=== PATIENT | male | born 1960 | race Two or more races ===

== ENCOUNTER 2018-08-05 11:43 | Inpatient (IN) | payer OTHER ==
[~2018-08-05] VITALS: Ht 175.3 cm; Wt 81.6 kg
--- NOTE | 2018-08-05 11:52 | NUR ---
PT BIBRA FROM HOME FOR CP X1HR; TOOK NITRO SEARCH ENGINE MARKETING MANAGER, PT [id number], PT ON MONITOR, VSS, NAD NOTED, PENDING ER PROVIDER KIESHA
[2018-08-05] MEDS ORDERED: ASPIRIN 325 MG TABLET ONE (11:59)
[2018-08-05] MEDS ORDERED: NITROGLYCERIN PACKET 1 GM PACKET ONE (11:59)
[2018-08-05 12:00] LABS: BASOPHILS # (AUTO) 0.1 /CMM (0.0-0.2); BASOPHILS % (AUTO) 0.7 % (0.0-2.0); EOSINOPHILS % (AUTO) 3.5 % (0.0-6.0); HEMATOCRIT 43 % (39-51); HEMOGLOBIN 14.6 g/dL (13.5-17.5); LYMPHOCYTES # (AUTO) 2.4 /CMM (0.8-4.8); LYMPHOCYTES % (AUTO) 29.5 % (20.0-44.0); MEAN CORPUSCULAR HGB CONC 34 g/dl (31.0-36.0); MEAN CORPUSCULAR VOLUME 90 fL (80-96); MONOCYTES # (AUTO) 0.7 /CMM (0.1-1.30); MONOCYTES % (AUTO) 8.8 % (2.0-12.0); NEUTROPHILS # (AUTO) 4.7 /CMM (1.8-8.9); NEUTROPHILS % (AUTO) 57.5 % (43.0-81.0); PLATELET COUNT (AUTO) 329 /CMM (150-450); WHITE BLOOD COUNT (AUTO) 8.2 K/uL (4.3-11.0)
[2018-08-05] MEDS ORDERED: ASPIRIN 325 MG TABLET PO ONE (12:00)
[2018-08-05] MEDS ORDERED: NITROGLYCERIN PACKET 1 GM PACKET TD ONE (12:00)
[2018-08-05 12:16] LABS: CARBON DIOXIDE 26 mmol/L (21-32); CHLORIDE 103 mmol/L (98-107); CREATININE 1.2 mg/dL (0.6-1.3); GLUCOSE 216 mg/dL (74-106); POTASSIUM 3.9 mmol/L (3.5-5.1); SODIUM SERUM 138 mmol/L (136-145); UREA NITROGEN, BLOOD 15 mg/dL (7-18)
[2018-08-05] MEDS ORDERED: [UNRECOGNIZED DRUG - REMARK] PO (12:17)
[2018-08-05] MEDS ORDERED: NITR0.4T48 SL (12:17)
[2018-08-05] MEDS ORDERED: UNK HTN PO (12:17)
[2018-08-05] MEDS ORDERED: [UNRECOGNIZED DRUG - REMARK] PO (12:17)
[2018-08-05 12:21] LABS: ALANINE AMINOTRANSFERASE 53 U/L (12-78); ALBUMIN 3.8 g/dL (3.4-5.0); ALKALINE PHOSPHATASE 48 U/L (46-116); ASPARTATE AMINOTRANSFERASE 27 U/L (15-37); BILIRUBIN,DIRECT 0.1 mg/dL (0.0-0.2); BILIRUBIN,TOTAL 0.3 mg/dL (0.2-1.0); TOTAL PROTEIN, SERUM 6.9 g/dL (6.4-8.2)
[2018-08-05] MEDS ORDERED: METF-440 PO (12:24)
[2018-08-05] MEDS ORDERED: ERGO500040 PO (12:24)
[2018-08-05] MEDS ORDERED: CETI10TA14 PO (12:24)
[2018-08-05] MEDS ORDERED: AMLO10TA7 PO (12:24)
[2018-08-05] MEDS ORDERED: IPRA12.9 INH (12:24)
[2018-08-05] MEDS ORDERED: ROSU20TA31 PO (12:24)
--- NOTE | 2018-08-05 12:44 | NUR ---
CLINICALLS SENT TO THE FRONT
--- NOTE | 2018-08-05 12:50 | NUR ---
CALLED FOR TELE BED
--- NOTE | 2018-08-05 13:39 | NUR ---
[facility] BED 111-2
--- NOTE | 2018-08-05 14:25 | NUR ---
REPORT GIVEN TO LUDA PEÑA FOR NICK
--- NOTE | 2018-08-05 14:26 | NUR ---
SUPPLY PERSONSTEEL FABRICATING SUPERVISOR NOTES RECEIVED PT FROM ER TO ROOM 111-2 VIA [employer].ALERT/ORIENTED X4,LITHUANIAN SPEAKING,KNOWS MACEDONIAN.ON ROOM AIR,SATURATING WELL.NO SOB AND ACUTE DISTRESS NOTED.CAN AMBULATE WITH MINIMAL SUPERVISION.NOTED WITH PAIN 1/10 ON CHEST-LEFT.IV LINE IS ON RIGHT AC G18,SITE IS CLEAN,DRY AND INTACT.NO INFILTRATION NOTED.FAMILY IS AT BEDSIDE.SKIN ASSESSMENT IS DONE AND PHOTO HAS TAKEN,NOTED WITH OLD SURGICAL SCAR ON STOMACH,SKIN TEAR ON B./L LOWER LEG.VITAL SIGNS CHECKED,WNL. SAFETY IS MAINTAINED AT ALL TIMES.BED IS IN LOW POSITION AND LOCKED.CALL LIGHT IS WITHIN REACH.WILL CONTINUE TO MONITOR THE PT CLOSELY.
[2018-08-05 16:00] VITALS: BP 121/64
[2018-08-05] MEDS ORDERED: ONDANSETRON HCL/PF 4 MG/2 ML VIAL IVP PRN (17:00)
[2018-08-05] MEDS ORDERED: cetrizine 10 MG TABLET PO PRN (17:00)
[2018-08-05] MEDS ORDERED: MORPHINE SULFATE INJ 2 MG/ML DISP.SYRIN IV PRN (17:00)
[2018-08-05] MEDS ORDERED: NITROGLYCERIN 0.4 MG/TAB BOTTLE SL PRN ×2 (17:00)
[2018-08-05] MEDS ORDERED: ERGOCALCIFEROL (VITAMIN D 2) 50,000 UNIT CAPSULE PO SCH (17:00)
[2018-08-05] MEDS ORDERED: IPRATROPIUM NEB FS 0.5 MG/2.5 ML AMPUL.NEB NEB PRN (18:00)
[2018-08-05] MEDS: METFORMIN 500 MG TABLET PO SCH (18:22)
[2018-08-05] MEDS: AMLODIPINE BESYLATE 10 MG TABLET PO SCH (18:22)
[2018-08-05] MEDS: METOPROLOL TARTRATE 25 MG TABLET PO SCH (18:23)
--- NOTE | 2018-08-05 19:40 | NUR ---
MIDDLEWARE CONSULTANT OPENING NOTES Received patient on bed, alert, oriented x 4. Family at bedside. Breathing even and unlabored. Not in any distress. Tolerating room air. No complaints as of this time. Requesting to smoke, smoking consent signed- in chart. IV access in RAC g18, intact and patent. Tele monitor in place, sinus rhythm 77. Safety measures in place; call bermudez within reach. Bed in low, locked position. Patient stable as endorsed by the morning RN. Will continue to monitor accordingly
[2018-08-05 21:05] VITALS: BP 122/74
[2018-08-06] VITALS (7 sets, daily range): BP systolic 113–122; BP diastolic 56–77
--- NOTE | 2018-08-06 06:30 | NUR ---
BRANDS EDITOR CLOSING NOTES Patient resting in bed, alert, oriented x 4. Breathing even and unlabored. Not in any distress. Tolerating room air. No complaints of chest pain through the night. IV access in RAC g18, intact and patent. Tele monitor in place, sinus rhythm 88 with BBB. All needs attended to. Safety measures in place; call bermudez within reach. Bed in low, locked position. Will endorse NICK to incoming RN
--- NOTE | 2018-08-06 07:10 | NUR ---
EDITOR HOUSE ORGAN OPENING NOTES RECEIVED PT RESTING IN BED. ALERT/ORIENTED X4. ON ROOM AIR, SATURATING WELL. NO SOB AND ACUTE DISTRESS NOTED. CAN AMBULATE WITH MINIMAL SUPERVISION. NOTED WITH PAIN 0/10 ON CHEST, BACK, AND LEFT ARM. IV LINE IS ON RIGHT AC G18, SITE IS CLEAN, DRY AND INTACT. NO INFILTRATION NOTED. BED IS IN LOW POSITION AND LOCKED. CALL LIGHT IS WITHIN REACH. WILL CONTINUE TO MONITOR THE PT CLOSELY THROUGHOUT SHIFT.
[2018-08-06 07:37] LABS: BASOPHILS % (AUTO) 0.4 % (0.0-2.0); EOSINOPHILS % (AUTO) 2.5 % (0.0-6.0); HEMATOCRIT 42 % (39-51); HEMOGLOBIN 13.9 g/dL (13.5-17.5); LYMPHOCYTES # (AUTO) 1.4 /CMM (0.8-4.8); LYMPHOCYTES % (AUTO) 12.7 % (20.0-44.0); MEAN CORPUSCULAR HGB CONC 33 g/dl (31.0-36.0); MEAN CORPUSCULAR VOLUME 89 fL (80-96); MONOCYTES # (AUTO) 0.8 /CMM (0.1-1.30); NEUTROPHILS # (AUTO) 8.6 /CMM (1.8-8.9); NEUTROPHILS % (AUTO) 77.4 % (43.0-81.0); PLATELET COUNT (AUTO) 278 /CMM (150-450); RED BLOOD CELL COUNT(AUTO) 4.71 MIL/uL (4.5-6.0); WHITE BLOOD COUNT (AUTO) 11.2 K/uL (4.3-11.0)
[2018-08-06 07:59] LABS: CALCIUM, SERUM 8.8 mg/dL (8.5-10.1); CREATININE 1.2 mg/dL (0.6-1.3); MAGNESIUM 1.7 mg/dL (1.8-2.4); PHOSPHORUS 3.2 mg/dL (2.5-4.9); POTASSIUM 4.3 mmol/L (3.5-5.1)
[2018-08-06] MEDS: AMLODIPINE BESYLATE 10 MG TABLET PO SCH (08:56)
[2018-08-06] MEDS: ASPIRIN 81 MG TAB.CHEW PO SCH (08:56)
[2018-08-06] MEDS: METOPROLOL TARTRATE 25 MG TABLET PO SCH ×2 (08:57→16:46)
[2018-08-06] MEDS: METFORMIN 500 MG TABLET PO SCH ×2 (08:57→16:36)
[2018-08-06] MEDS: ATORVASTATIN 40 MG TABLET PO SCH (08:57)
[2018-08-06] MEDS ORDERED: Magnesium 1GM/D5W 100ML PREMIX 100 ML IV SCH (09:30)
[2018-08-06] MEDS: LOSARTAN POTASSIUM 50 MG TABLET PO SCH (10:34)
[2018-08-06] MEDS: Magnesium 1GM/D5W 100ML PREMIX 100 ML IV SCH ×2 (10:37→11:26)
[2018-08-06] MEDS: ACETAMINOPHEN 325 MG TABLET PO PRN (16:34)
--- NOTE | 2018-08-06 19:10 | NUR ---
NURSE MANAGER CLOSING NOTES RECEIVED PT RESTING IN BED. ALERT/ORIENTED X4. ON ROOM AIR, SATURATING WELL. NO SOB AND ACUTE DISTRESS NOTED. CAN AMBULATE WITH MINIMAL SUPERVISION. NOTED WITH PAIN 0/10 ON CHEST, BACK, AND LEFT ARM. IV LINE IS ON RIGHT AC G18, SITE IS CLEAN, DRY AND INTACT. NO INFILTRATION NOTED. BED IS IN LOW POSITION AND LOCKED. CALL LIGHT IS WITHIN REACH. ALL NEEDS MET. ENDORSED TO FLIGHT INSPECTOR NURSE FOR NICK.
--- NOTE | 2018-08-06 20:00 | NUR ---
RN INITIAL NOTES RECEIVED PT RESTING IN BED.FAMILY AT BED SIDE. ALERT/ORIENTED X4. ON ROOM AIR, SATURATING WELL. NO SOB AND ACUTE DISTRESS NOTED. IV LINE IS ON RIGHT AC G18, SITE IS CLEAN, DRY AND INTACT. NO INFILTRATION NOTED. BED IS IN LOW POSITION AND LOCKED. CALL LIGHT IS WITHIN REACH. WILL CONTINUE TO MONITOR.
[2018-08-07 01:00] VITALS: BP 121/61
[2018-08-07 05:00] VITALS: BP 125/69
--- NOTE | 2018-08-07 06:34 | NUR ---
CUSTOMER ORDER CLERK CLOSING NOTES PT RESTING IN BED. ALERT/ORIENTED X4. ON ROOM AIR, SATURATING WELL. NO SOB AND ACUTE DISTRESS NOTED.NO CP REPORTED. IV LINE IS ON RIGHT AC G18, SITE IS CLEAN, DRY AND INTACT. BED IN LOW POSITION AND LOCKED. CALL LIGHT IS WITHIN REACH. ALL NEEDS MET. WILL ENDORSE TO AM SHIFT NURSE FOR NICK.
[2018-08-07 07:06] LABS: CALCIUM, SERUM 8.5 mg/dL (8.5-10.1); CREATININE 1.3 mg/dL (0.6-1.3); MAGNESIUM 1.8 mg/dL (1.8-2.4); POTASSIUM 4.3 mmol/L (3.5-5.1)
--- NOTE | 2018-08-07 07:20 | NUR ---
OIL DERRICK OPERATOR OPENING NOTES RECEIVED PT RESTING IN BED. ALERT/ORIENTED X4. ON ROOM AIR, SATURATING WELL. NO SOB AND ACUTE DISTRESS NOTED. CAN AMBULATE WITH MINIMAL SUPERVISION. NO CHEST PAIN NOTED. IV LINE IS ON RIGHT AC G18, SITE IS CLEAN, DRY AND INTACT. NO INFILTRATION NOTED. BED IS IN LOW POSITION AND LOCKED. CALL LIGHT IS WITHIN REACH.SRX2. WILL CONTINUE TO MONITOR .
[2018-08-07 08:00] VITALS: BP 138/75
[2018-08-07] MEDS: ATORVASTATIN 40 MG TABLET PO SCH (08:19)
[2018-08-07] MEDS: AMLODIPINE BESYLATE 10 MG TABLET PO SCH (08:19)
[2018-08-07] MEDS: ASPIRIN 81 MG TAB.CHEW PO SCH (08:20)
[2018-08-07] MEDS: METOPROLOL TARTRATE 25 MG TABLET PO SCH ×2 (08:20→16:37)
[2018-08-07] MEDS: LOSARTAN POTASSIUM 50 MG TABLET PO SCH (08:20)
[2018-08-07] MEDS: METFORMIN 500 MG TABLET PO SCH ×2 (08:20→16:35)
[2018-08-07 12:00] VITALS: BP 124/68
[2018-08-07] MEDS: BLOOD SUGAR DIAGNOSTIC 1 EACH STRIP IN SCH ×3 (12:00→22:25)
[2018-08-07] MEDS ORDERED: DEXTROSE 50%-WATER 50 ML DISP.SYRIN IV PRN (12:00)
--- NOTE | 2018-08-07 13:00 | NUR ---
OUTBOARD MOTOR TESTER NOTE NOT GIVEN INSULIN BECAUSE PATENT NOT EATING LUNCH.
[2018-08-07] MEDS: ACETAMINOPHEN 325 MG TABLET PO PRN (13:34)
[2018-08-07] MEDS: IV 1/2NS 1000 ML 1,000 ML IV PRN (13:37)
--- NOTE | 2018-08-07 14:30 | NUR ---
ELEMENT SETTER NOTE SEEN BY ,UPDATED ABOUT PATIENT CONDITION AND GOT ORDERS.
[2018-08-07] MEDS ORDERED: METOPROLOL TARTRATE INJ 5 MG/5 ML AMPUL ONE ×2 (14:54→15:00)
[2018-08-07] MEDS ORDERED: METOPROLOL TARTRATE INJ 5 MG/5 ML AMPUL IVP ONE (15:30)
[2018-08-07] MEDS ORDERED: IV NS 0.9% 500 ML IV ONE (15:30)
--- NOTE | 2018-08-07 15:30 | NUR ---
FRIT MAKER NOTE PATIENT PICKED UP FOR CTA.
[2018-08-07 16:00] VITALS: BP_SYST 116; BP_SYST 127; BP_DIAS 62; BP_DIAS 72
--- NOTE | 2018-08-07 19:00 | NUR ---
EQUIPMENT MANAGER NOTE GLUCOPHAGE HOLD BECAUSE PATIENT BLEVINS POOR PO INTAKE.REFUSED FLU VACCINE BECAUSE PATIENT STATED FEELS LIKE HE IS GETTING SICK AND COLD.HE WILL F/U WITH HIS PCP.GOT CALL FROM TO HOLD DISCHARGE ,NPO POST MIDNIGHT.STRESS TEST TOMORROW.ENDORSED TO PM NURSE FOR NICK.
--- NOTE | 2018-08-07 19:15 | NUR ---
RN NOTES RECEIVED PATIENT AWAKE, HOB ELEVATED, ON ROOM AIR AND TOLERATED WELL. PATIENT IS ALERT AND ORIENTED X4, DENIES PAIN NAUSEA AND VOMITING AT THIS TIME. IV ACCESS ON LEFT AC PATENT AND INTACT WITH ONGOING IVF INFUSING WELL. PLAN OF CARE DISCUSSED WITH THE PATIENT AND FAMILY AT BEDSIDE AND VERBALIZED UNDERSTANDING. KEPT PATIENT COMFORTABLE AND ATTENDED WITH CALL LIGHT WITHIN REACH. WILL CONTINUE TO MONITOR PATIENT.
[2018-08-07 20:00] VITALS: BP 138/84
[2018-08-07] MEDS: INSULIN REGULAR, HUMAN 100 UNIT/ML 3 ML VIAL SQ PRN (22:17)
[2018-08-08] VITALS: BP 143/81
[2018-08-08] MEDS: IV 1/2NS 1000 ML 1,000 ML IV PRN (03:50)
[2018-08-08 04:00] VITALS: BP_SYST 126; BP_SYST 143; BP_DIAS 66; BP_DIAS 81
--- NOTE | 2018-08-08 05:55 | NUR ---
RN Notes Patient slept well overnight, vital signs stable, afebrile. Denies any pain and discomfort, on room air and tolerated well. Telemonitor reads Sinus Rhythm with heart rate at 80. Kept patient on NPO for stress test scheduled today. Ambulatory with steady gait. Voiding well. All needs attended. Will endorsed to morning RN for continuity of care.
[2018-08-08] MEDS: BLOOD SUGAR DIAGNOSTIC 1 EACH STRIP IN SCH ×3 (06:24→17:39)
--- NOTE | 2018-08-08 07:12 | NUR ---
RELAY SHOP TESTER OPENING NOTES RECEIVED PT RESTING IN BED. ALERT/ORIENTED X4. ON ROOM AIR, SATURATING WELL. NO SOB AND ACUTE DISTRESS NOTED. CAN AMBULATE WITH MINIMAL SUPERVISION. NO CHEST PAIN NOTED. IV LINE IS ON L AC G20, SITE IS CLEAN, DRY AND INTACT. NO INFILTRATION NOTED WITH 1/2 NS @80CC/HR. ON TELE MONITOR WITH HR OF 77.BED IS IN LOW POSITION AND LOCKED. CALL LIGHT IS WITHIN REACH.SRX2. WILL CONTINUE TO MONITOR .
[2018-08-08] MEDS ORDERED: REGADENOSON 0.4 MG/5 ML DISP.SYRIN IVP ONE (07:30)
[2018-08-08 08:00] VITALS: BP 130/72
[2018-08-08] MEDS: METFORMIN 500 MG TABLET PO SCH ×2 (09:00→17:41)
--- NOTE | 2018-08-08 10:00 | NUR ---
RUBBER FLAP TUBER MACHINE OPERATOR NOTE PATIENT PICKED UP FOR STRESS TEST AT 0815 IN STABLE CONDITION,INFORMED CONSENT RECEIVED FROM PATIENT.RETURN TO THE UNIT AT 0945 IN STABLE CONDITION.POOR PO INTAKE.HOLD MEDICATION GLUCOPHAGE.WILL CONTINUE TO MONITOR.
[2018-08-08] MEDS: LOSARTAN POTASSIUM 50 MG TABLET PO SCH (10:10)
[2018-08-08] MEDS: AMLODIPINE BESYLATE 10 MG TABLET PO SCH (10:10)
[2018-08-08] MEDS: ASPIRIN 81 MG TAB.CHEW PO SCH (10:10)
[2018-08-08] MEDS: METOPROLOL TARTRATE 25 MG TABLET PO SCH ×3 (10:10→17:41)
[2018-08-08] MEDS: ATORVASTATIN 40 MG TABLET PO SCH (10:10)
[2018-08-08 12:00] VITALS: BP 116/50
[2018-08-08] MEDS: INSULIN REGULAR, HUMAN 100 UNIT/ML 3 ML VIAL SQ PRN (12:09)
--- NOTE | 2018-08-08 13:00 | NUR ---
SHIP ENGINES OPERATING ENGINEER NOTE PATIENT REFUSED INSULIN.EXPLAINED RISK AND BENEFIT STILL REFUSING.
[2018-08-08 16:00] VITALS: BP 109/62
--- NOTE | 2018-08-08 17:00 | NUR ---
PLASTICS AND COMPOSITES INSPECTOR NOTE SEEN BY CAMPOS BASS GOT ORDER FOR DISCHARGE TO HOME.PATIENT MADE AWARE.PATIENT REFUSED FLU VACCINE.WILL F/U WITH PRIMARY DOCTOR.
--- NOTE | 2018-08-08 17:30 | NUR ---
RECRUITING MANAGER NOTE SEEN BY CAMPOS BASS CLARIFIED DISCHARGE MED LIST ,GOT NEW PRESCRIPTIONS.
[2018-08-08 17:41] VITALS: BP 110/64
--- NOTE | 2018-08-08 18:07 | NUR ---
SALES MANAGEMENT TRAINEECYLINDER DIE MACHINE HELPER NOTE PATIENT D/C HOME IN STABLE CONDITION.VITAL SIGNS STABLE .NO SOB NO DISTRESS NOTED AT THIS TIME.EXIT CARE GIVEN TO PATIENT AND DAUGHTER.VERBALIZED UNDERSTANDING.ANSWERED ALL THE QUESTIONS.PATIENT REFUSED BODY CHECK.ALL DISCHARGE PAPER WORK AND BELONGINGS TAKEN.IV REMOVED .MINIMAL BLEEDING NOTED.PRESSURE DRESSING APPLIED.NO C/O ANY PAIN OR CHEST PAIN.LEFT WITH SON IN LOW AND DAUGHTER.
== END 2018-08-08 18:11 | disposition home or self-care (01) | DRG 198 ==
LOC: ER 11:45 → TELE1 13:53
PROVIDERS: ADMIT Internal Medicine; ATTEND Internal Medicine
DX: I20.0 Unstable angina (principal); J43.2 Centrilobular emphysema; E11.9 Type 2 diabetes mellitus without complications; I10 Essential (primary) hypertension; E78.5 Hyperlipidemia, unspecified; Z79.84 Long term (current) use of oral hypoglycemic drugs; F17.200 Nicotine dependence, unspecified, uncomplicated; Z79.899 Other long term (current) drug therapy
CPT/HCPCS: 36415; 71045-TC; 75574; 80048-TC; 80061-TC; 80076-TC; 82962-TC; 83735-TC; 84100-TC; 84484-TC; 85025-TC; 85730-TC; 87081-TC; 93307-TC; A9502; G0378; J1815; J2785; J3475; J3490; J7030; J7050

== ENCOUNTER 2021-08-23 11:10 | Emergency (ER) | payer OTHER ==
[~2021-08-23] VITALS: Ht 167.6 cm; Wt 81.6 kg
[~2021-08-23 11:10] MED LIST: AMLO-213 PO; CETI10TA14 PO; ERGO500040 PO; IPRA12.9 INH; METF-440 PO; NITR0.4T48 SL; ROSU20TA32 PO
[2021-08-23 11:23] VITALS: BP 135/69
--- NOTE | 2021-08-23 11:23 | NUR ---
ZEUS C/O RT EAR PAIN THAT RADIATES TO RIGHT JAW WHEN SWALLOWING P/S 01/27
[2021-08-23] MEDS ORDERED: OFLO5DRO5 RIGHT EAR (12:02)
--- NOTE | 2021-08-23 12:06 | NUR ---
Patient discharged to home in stable condition. Written and verbal after care instructions given. Patient verbalizes understanding of instruction.
== END 2021-08-23 12:07 | disposition home or self-care (01) ==
LOC: ER 11:13
DX: H60.8X1 Other otitis externa, right ear (principal); I10 Essential (primary) hypertension; E11.9 Type 2 diabetes mellitus without complications; Z79.84 Long term (current) use of oral hypoglycemic drugs; Z79.899 Other long term (current) drug therapy